=== PATIENT | male | born 2005 | race Two or more races ===

== ENCOUNTER 2025-09-28 08:20 | Outpatient (REF) | payer OTHER, SELFPAY ==
--- NOTE | ~2025-09-28 | MR_ITS ---
EXAMINATION: MR SHOULDER WITHOUT AND WITH CONTRAST, LEFT CLINICAL INFORMATION: Pain, peripheral lucency of proximal humeral diaphysis. Correlation with the x-ray report 09/22/2025 COMPARISON: No prior imaging available for comparison. Correlation with x-ray report, 09/22/2025. TECHNIQUE: MRI of the shoulder was performed before and after the intravenous administration of 8 mL of Gadavist on a high-field scanner. FINDINGS: Precontrast imaging was obtained of the left shoulder was obtained. The noncontrast images were obtained. These images were reviewed at the request of MR technologist. The lesion was not clearly evident on noncontrast sequences. No prior imaging/radiograph is available for correlation. Postcontrast imaging was not deferred. Telephone call to Dr. Bravo, to confirm the location of the lesion. Dr. Bravo reported that the lesion is in the medial peripheral cortex of the proximal humeral head and neck junction, and that the lesion would be the [id number] of the shoulder MRI. Patient was brought back to the MRI, and postcontrast sequences obtained. ROTATOR CUFF: Supraspinatus, infraspinatus, teres minor, subscapularis tendons are intact. No muscle atrophy or fatty infiltration. BICEPS: Intact CORACOACROMIAL ARCH: The undersurface of the acromion is curved with no subacromial spur. The acromioclavicular joint is normal. No significant fluid in subacromial subdeltoid space LABRUM/CAPSULE: No displaced labral tear is seen. Intact inferior capsule GLENOHUMERAL JOINT/MARROW: No suspicious/abnormal marrow signal is identified in the imaged portion of the humerus. The lesion described on x-ray report of 09/22/2025 is not clearly evident on MRI. The marrow signal is within normal limits. No evidence of significant edema to suggest bone contusion or stress reaction. No aggressive marrow replacing lesion is identified. Additional findings: Normal signal in the deltoid muscle. MR/MR shoulder LT wo/w con IMPRESSION: 1. The reported humeral lesion is not identified. No focal/suspicious abnormal marrow signal is identified. No aggressive marrow replacing lesion or process is seen.. The reported lesion in the medial aspect of proximal humerus has not been characterized by MRI. Recommend close correlation with prior x-ray, to ensure that the lesion has been included in the [id number]. A dedicated MRI humerus without and with contrast can be obtained, as clinically indicated. Recommend clinical correlation and management. Recommend ongoing clinical and radiographic follow-up, consider for follow up mri as clinically indicated. 2. No measurable rotator cuff tear or retraction is seen. 3. Additional findings and details as above. Electronically signed by: Will Denis MD 09/28/2025 01:12 PM [facility]
== END 2025-09-28 08:21 | disposition home or self-care (01) ==
LOC: HO.MRI 08:20
PROVIDERS: Visit Provider Family Medicine
DX: M25.512 Pain in left shoulder (principal); R93.6 Abnormal findings on diagnostic imaging of limbs
CPT/HCPCS: 73223; A9585

== ENCOUNTER → 2025-09-28 08:25 | Outpatient (BNV) | payer OTHER, SELFPAY | PROVIDERS: Visit Provider Radiology Diagnostic Ultrasound | DX: M25.512 Pain in left shoulder (principal) | CPT/HCPCS: 73223 ==